=== PATIENT | female | born 1950 | race Caucasian/White ===

== ENCOUNTER 2017-06-20 19:43 | Emergency (ER) | payer MEDICARE, MEDICAID ==
[~2017-06-20] VITALS: Ht 162.6 cm; Wt 68.0 kg
--- NOTE | 2017-06-20 20:28 | NUR ---
PT AMBULATORY TO ER BED 8, PLACED IN GOWN. PT STATES SHE TRIPPED OVER A TOY AND FELL. PT C/O PAIN IN RT SHOULDER AND UPPER ARM. VSS/RESP EVEN UNLABORED/NAD NOTED/SKIN WARM AND DRY/ DENIES N/V/D. PT STATES DID NOT HIT HER HEAD.
--- NOTE | 2017-06-20 20:55 | NUR ---
XRAY AT BEDSIDE PER MD ORDERS.
[2017-06-20 21:14] VITALS: BP 162/71
== END 2017-06-20 21:41 | disposition home or self-care (01) ==
LOC: ER 19:48
DX: S43.401A Unspecified sprain of right shoulder joint, initial encounter (principal); I10 Essential (primary) hypertension; E11.9 Type 2 diabetes mellitus without complications; Z88.2 Allergy status to sulfonamides; Z88.1 Allergy status to other antibiotic agents; Y93.89 Activity, other specified; W01.0XXA Fall on same level from slipping, tripping and stumbling without subsequent striking against object, initial encounter; Y92.89 Other specified places as the place of occurrence of the external cause; Y99.8 Other external cause status
CPT/HCPCS: 73060; 99284; A4606; Z7610